=== PATIENT | female | born 1985 | race Caucasian/White ===

== ENCOUNTER 2020-07-07 13:59 | Emergency (ER) | payer BC, OTHER ==
[2020-07-07 14:29] VITALS: BP 131/87; PULSE 102; TEMP 98; BMI 28.7
[2020-07-07] MEDS ORDERED: DOXYCYCLINE HYCLATE 100 MG CAPSULE PO ONE (15:55)
[2020-07-07 16:55] LABS: CALCIUM 9.4 mg/dl (8.5-10); CREATININE 0.9 mg/dl (0.55-1.3); POTASSIUM 4.1 mmol/L (3.5-5.1)
[2020-07-07 17:09] LABS: MEAN PLT VOLUME 8.6 fl (7.5-11.1); RBC 4.69 M/mm3 (3.60-5.2)
[2020-07-07 17:11] LABS: BASO % 1.5 % (0-2.0); HEMATOCRIT 41.8 % (32.4-45.2); HEMOGLOBIN 14.3 GM/dl (10.7-15.3); LYMPH % 32.7 % (8-40); MCH 30.4 pg (25.7-33.7); MCHC 34.1 g/dl (32.0-36.0); MONO % 4.9 % (3.8-10.2); NEUT % 59.9 % (42.8-82.8); PLATELET COUNT 342 K/MM3 (134-434); RDW 11.3 % (11.6-15.6); WHITE BLOOD COUNT 7.8 K/mm3 (4.0-10.8)
== END 2020-07-07 18:21 | disposition home or self-care (01) ==
LOC: FER 13:59
DX: R07.89 Other chest pain (principal)
CPT/HCPCS: 36415; 71045-TC-FY; 80048; 84484; 85025; 85379; 93005; 99285-25